=== PATIENT | female | born 1940 | race Caucasian/White ===

== ENCOUNTER 2018-02-26 13:14 | Observation (INO) ==
--- NOTE | 2018-02-26 14:56 | ED ---
HPI General Chief complaint: Medical Clearance Stated complaint: Psych eval / OBPD Time Seen by Provider: 02/26/18 13:47 History of Present Illness HPI narrative: Patient is a 77-year-old female with a history of rheumatoid arthritis and lupus presents the emergency department under Feliciano act for evaluation. Patient states that her son was arrested today for parole violation was taken to correction. She states that inform law enforcement she told her son that she was going to take the rest of her Xanax and kill herself because of this. The patient states that she is living with her son and that her son performs most of her advanced activities of daily living including getting the food helping with cooking and cleaning. Patient is able to ambulate with a walker to the bathroom and back. She denies any physical complaints currently denies any chest pain shortness breath abdominal pain nausea vomiting diarrhea constipation. She states she is feeling like she is going to have a panic attack and becomes very tearful during the exam. Symptoms moderate, started today, associated signs symptoms and context as above. Related Data Allergies Allergy/AdvReac Type Severity Reaction Status Date / Time No Known Allergies Allergy Verified 02/26/18 14:46 Review of Systems ROS: all other systems reviewed are negative PMFSH Social History Social History Substance History: No History of Abuse Second Hand Smoke Exposure: No Smoking Status: Current every day smoker Tobacco Type: Cigarettes How Often Do You Have a Drink Containing Alcohol: Never Recent Travel in [facility] within the Last 8 Weeks: No Recent Out of Country Travel within the Last 8 Weeks: No Immunization History Tetanus Immunization: <5 Years Exam Narrative Exam Narrative: GENERAL: Well-developed well-nourished no obvious distress. Tearful during exam. SKIN: Focused skin assessment warm/dry. HEAD: Atraumatic. Normocephalic. EYES: Pupils equal and round. No scleral icterus. No injection or drainage. ENT: No nasal bleeding or discharge. Mucous membranes pink and moist. NECK: Trachea midline. No JVD. CARDIOVASCULAR: Regular rate and rhythm. No murmur appreciated. RESPIRATORY: No accessory muscle use. Clear to auscultation. Breath sounds equal bilaterally. GASTROINTESTINAL: Abdomen soft, non-tender, nondistended. Hepatic and splenic margins not palpable. MUSCULOSKELETAL: Patient does not appear to have any traumatic deformities, there is ulnar deviation of all the digits in bilateral upper extremities consistent with chronic rheumatoid arthritis.. No clubbing. No cyanosis. No edema. NEUROLOGICAL: Awake and alert. No obvious cranial nerve deficits. Motor grossly within normal limits. Normal speech. PSYCHIATRIC: Appropriate mood and affect; insight and judgment normal. Denies suicidal homicidal ideation. Course Initial Documented Vital Signs Temperature 98.1 F 02/26/18 13:43 Pulse Rate 84 02/26/18 13:43 Respiratory Rate 16 02/26/18 13:43 Blood Pressure 150/74 H 02/26/18 13:43 Pulse Oximetry 96 02/26/18 13:43 Last Documented Vital Signs Temperature 98.1 F 02/26/18 13:43 Pulse Rate 84 02/26/18 13:43 Respiratory Rate 16 02/26/18 13:43 Blood Pressure 150/74 H 02/26/18 13:43 Pulse Oximetry 96 02/26/18 13:43 Medical Decision Making MDM Narrative Medical decision making narrative: Patient room in the emergency department, she is under Feliciano act, does not appear to have any medical problems that warrant emergent workup. In my opinion she is medically clear for psychiatric evaluation. Basic labs been ordered according to psychiatric protocol. I reviewed the patient's labs, minimally elevated white count 14.1. Patient does not have any signs symptoms suggest infection. A chest x-ray UA were negative. She remains medically cleared for psychiatric evaluation. I case management request I will also place referral for home health. Medical Screen Exam Complete: Yes Emergency Medical Condition: Yes Lab Data Result diagrams: 02/26/18 13:45 02/26/18 13:45 Lab Results 02/26/18 02/26/18 02/26/18 Range/Units 13:45 13:45 15:30 WBC 14.1 H (4.0-11.0) th/mm3 RBC 4.37 (4.00-5.30) mil/mm3 Hgb 13.9 (11.6-15.3) gm/dL Hct 40.8 (35.0-46.0) % MCV 93.5 (80.0-100.0) fL MCH 31.7 (27.0-34.0) pg MCHC 33.9 (32.0-36.0) % RDW 16.2 (11.6-17.2) % Plt Count 210 (150-450) th/mm3 MPV 9.5 (7.0-11.0) fL Neut % (Auto) 82.0 H (16.0-70.0) % Lymph % (Auto) 10.7 (9.0-44.0) % [place] % (Auto) 7.1 (0.0-8.0) % Eos % (Auto) 0.0 (0.0-4.0) % Baso % (Auto) 0.2 (0.0-2.0) % Neut # (Auto) 11.5 H (1.8-7.7) th/mm3 Lymph # (Auto) 1.5 (1.0-4.8) th/mm3 Woodson # (Auto) 1.0 H (0.0-0.9) th/mm3 Eos # (Auto) 0.0 (0.0-0.4) th/mm3 Baso # (Auto) 0.0 (0.0-0.2) th/mm3 WBC Differential . Differential Comment Auto diff final Sodium 137 (136-145) meq/L Potassium 3.7 (3.5-5.1) meq/L Chloride 106 (98-107) meq/L Carbon Dioxide 22.3 (21.0-32.0) meq/L Anion Gap 9 (5-15) meq/L BUN 19 H (7-18) mg/dL Creatinine 0.82 (0.50-1.00) mg/dL Estimated GFR 68 L (>89) mL/min Random Glucose 157 H (74-106) mg/dL Calcium 8.7 (8.5-10.1) mg/dL Magnesium 2.1 (1.5-2.5) mg/dL Total Bilirubin 0.4 (0.2-1.0) mg/dL AST 14 L (15-37) U/L ALT 21 (10-53) U/L Alkaline Phosphatase 60 (45-117) U/L Total Protein 7.2 (6.4-8.2) g/dL Albumin 2.8 L (3.4-5.0) g/dL TSH 0.560 (0.358-3.740) uIU/mL Urine Color (Yellw/Straw) Urine Clarity (Clear) Urine pH (5.0-8.5) Ur Specific [place] (1.002-1.035) Urine Protein (Neg-Trace) mg/dL Urine Glucose (UA) (Negative) mg/dL Urine Ketones (Negative) mg/dL Urine Occult Blood (Negative) Urine Nitrate (Negative) Urine Bilirubin (Negative) Urine Urobilinogen (Less than 2) mg/dL Ur Leukocyte Esterase (Negative) Urine RBC (0-3) /hpf Urine WBC (0-5) /hpf Ur Microscopic Review Urine Opiates Screen Neg (Neg) Ur Barbiturates Screen Neg (Neg) Ur Amphetamines Screen Neg (Neg) U Benzodiazepines Scrn Neg (Neg) Urine Cocaine Screen Neg (Neg) U Cannabinoids Screen Neg (Neg) Serum Alcohol Less than 3 (0-5) mg/dL 02/26/18 Range/Units 15:30 WBC (4.0-11.0) th/mm3 RBC (4.00-5.30) mil/mm3 Hgb (11.6-15.3) gm/dL Hct (35.0-46.0) % MCV (80.0-100.0) fL MCH (27.0-34.0) pg MCHC (32.0-36.0) % RDW (11.6-17.2) % Plt Count (150-450) th/mm3 MPV (7.0-11.0) fL Neut % (Auto) (16.0-70.0) % Lymph % (Auto) (9.0-44.0) % [place] % (Auto) (0.0-8.0) % Eos % (Auto) (0.0-4.0) % Baso % (Auto) (0.0-2.0) % Neut # (Auto) (1.8-7.7) th/mm3 Lymph # (Auto) (1.0-4.8) th/mm3 [place] # (Auto) (0.0-0.9) th/mm3 Eos # (Auto) (0.0-0.4) th/mm3 Baso # (Auto) (0.0-0.2) th/mm3 WBC Differential Differential Comment Sodium (136-145) meq/L Potassium (3.5-5.1) meq/L Chloride (98-107) meq/L Carbon Dioxide (21.0-32.0) meq/L Anion Gap (5-15) meq/L BUN (7-18) mg/dL Creatinine (0.50-1.00) mg/dL Estimated GFR (>89) mL/min Random Glucose (74-106) mg/dL Calcium (8.5-10.1) mg/dL Magnesium (1.5-2.5) mg/dL Total Bilirubin (0.2-1.0) mg/dL AST (15-37) U/L ALT (10-53) U/L Alkaline Phosphatase (45-117) U/L Total Protein (6.4-8.2) g/dL Albumin (3.4-5.0) g/dL TSH (0.358-3.740) uIU/mL Urine Color Straw (Yellw/Straw) Urine Clarity Clear (Clear) Urine pH 7.0 (5.0-8.5) Ur Specific [place] 1.004 (1.002-1.035) Urine Protein Negative (Neg-Trace) mg/dL Urine Glucose (UA) Negative (Negative) mg/dL Urine Ketones Negative (Negative) mg/dL Urine Occult Blood Negative (Negative) Urine Nitrate Negative (Negative) Urine Bilirubin Negative (Negative) Urine Urobilinogen Less than 2 (Less than 2) mg/dL Ur Leukocyte Esterase Negative (Negative) Urine RBC Less than 1 (0-3) /hpf Urine WBC 2 (0-5) /hpf Ur Microscopic Review Not Reportable Urine Opiates Screen (Neg) Ur Barbiturates Screen (Neg) Ur Amphetamines Screen (Neg) U Benzodiazepines Scrn (Neg) Urine Cocaine Screen (Neg) U Cannabinoids Screen (Neg) Serum Alcohol (0-5) mg/dL Imaging Data Radiologist's impression: Chest X-Ray 02/26/18 16:35 CONCLUSION: No acute cardiopulmonary disease demonstrated. Discharge Plan Discharge Disposition Patient Disposition: 30 Still Patient Physicians Team ED Provider: Herbert Guidry Primary Care Provider: Primary Care Hannah Landa Status ED Status: Medically Cleared
[2018-02-26 15:47] LABS: Baso % (Auto) 0.2 % (0.0-2.0); Hematocrit 40.8 % (35.0-46.0); Hemoglobin 13.9 gm/dL (11.6-15.3); Lymph # (Auto) 1.5 th/mm3 (1.0-4.8); Lymph % (Auto) 10.7 % (9.0-44.0); Mean Corpuscular HGB Conc 33.9 % (32.0-36.0); Mean Corpuscular Hemoglobin 31.7 pg (27.0-34.0); Mean Corpuscular Volume 93.5 fL (80.0-100.0); Mean Platelet Volume 9.5 fL (7.0-11.0); Mono % (Auto) 7.1 % (0.0-8.0); Neut # (Auto) 11.5 th/mm3 (1.8-7.7); Platelet Count 210 th/mm3 (150-450); Red Blood Count 4.37 mil/mm3 (4.00-5.30); Red Cell Distribution Width 16.2 % (11.6-17.2); White Blood Count 14.1 th/mm3 (4.0-11.0)
[2018-02-26 15:59] LABS: Amphetamine Screen,Urine Neg (Neg); Barbiturate Screen,Urine Neg (Neg); Cannabinoid Screen,Urine Neg (Neg); Cocaine Screen,Urine Neg (Neg)
[2018-02-26 16:00] LABS: Opiate Screen,Urine Neg (Neg)
[2018-02-26 16:15] LABS: Alanine Aminotransferase 21 U/L (10-53); Albumin 2.8 g/dL (3.4-5.0); Anion Gap 9 meq/L (5-15); Aspartate Aminotransferase 14 U/L (15-37); Blood Urea Nitrogen 19 mg/dL (7-18); Calcium 8.7 mg/dL (8.5-10.1); Carbon Dioxide 22.3 meq/L (21.0-32.0); Chloride 106 meq/L (98-107); Glomerular Filtration Rate 68 mL/min (>89); Glucose,Random 157 mg/dL (74-106); Magnesium 2.1 mg/dL (1.5-2.5); Potassium 3.7 meq/L (3.5-5.1); Sodium 137 meq/L (136-145)
[2018-02-26 16:19] LABS: Alkaline Phosphatase 60 U/L (45-117); Total Protein 7.2 g/dL (6.4-8.2)
[2018-02-26 17:18] LABS: Bilirubin,Urine Negative (Negative); Clarity,Urine Clear (Clear); Color,Urine Straw (Yellw/Straw); Glucose,Urine (UA) Negative (Negative); Leukocyte Esterase,Urine Negative (Negative); Nitrite,Urine Negative (Negative); Specific Gravity,Urine 1.004 (1.002-1.035)
--- NOTE | 2018-02-26 17:44 | XR ---
EXAM DATE: 02/26/2018 5:41 PM EST AGE/SEX: 77 years / Female INDICATIONS: Cough CLINICAL DATA: This is the patient's initial encounter. Patient reports that signs and symptoms have been present for 1 day and indicates a pain score of 0/10. MEDICAL/SURGICAL HISTORY: None. None. COMPARISON: [facility], XR CHEST PA AND LAT, 04/16/2014. . FINDINGS: No infiltrate, effusion or pneumothorax. Heart size stable, within normal limits. Tortuous thoracic aorta again noted. Mild to moderate S shaped thoracolumbar curvature again seen. CONCLUSION: No acute cardiopulmonary disease demonstrated. Electronically signed by: Andi Murphy MD 02/26/2018 5:42 PM EST
--- NOTE | 2018-02-26 18:11 | P.DCO ---
Home Health Care Face to Face Diagnosis (1) Rheumatoid arthritis: Physical Therapy Order: Evaluate and treat Home Health Nursing Order: Medical education and Signs/symptoms of disease process Home Health Aide Order: To assist in: brush trimming machine setter and meal prep Final Armature Tester Order: To evaluate: Living conditions/environment Case Management Consult Case Management Consult-Home Health: Yes I have seen patient Aylin Hunter on 02/26/18. My clinical findings support the need for the requested home health care services because: Limited mobility due to disease progression and Limited ability to care for self I certify that my clinical findings support that this patient is homebound because: Unsteady gait/balance (Uses walker)
--- NOTE | 2018-02-27 12:17 | P.CONPSY ---
<Sonya Renee - Last Filed: 02/27/18 14:18> Provisional Diagnosis Admission Date: February 26, 2018 13:14 [place] I.: adjustment disorder History of Present Illness Primary Care Provider: No Primary Care Physician History of Present Illness: This is a 77 year-old , female who presents under a Feliciano Act to this facility for reportedly making suicidal statements. The patient is not previously known to this department. Reviewed electronic medical records, labs, and discussed case with staff. Patient was evaluated in her room in [facility]. She was found sitting in a chair in [facility]. Her speech is clear, logical, organized, of normal varun and volume. She denies being suicidal, homicidal, or experiencing auditory or visual hallucinations. The patient reports that she became upset after her son was arrested for probation violation. He lives with her and helps her. She claims that she does many of her own ADLs but cannot drive. She claims that she uttered the perceived threat of self-harm in the heat of the moment and denies that she would ever harm herself. There is no indication of psychosis nor domitila. I can elicit no delusional material. Patient advises that she lives with her son who was recently arrested and removed from the home. She denies any previous attempts at SI or admissions. She denies having been treated for mental health issues in the past. She denies a familial history. She denies owning any firearms. Review of Systems All other systems reviewed negative except as stated in HPI PMFSH - History History Provided By: Patient, Law Enforcement - Medical History Medical History: Medical History (Last Reviewed 02/27/18 @ 12:45 by MARK Resendez) Anxiety Chronic rheumatic arthritis Depression H/O: hysterectomy Lupus Osteoporosis - Tobacco History Second Hand Smoke Exposure: No Tobacco Use In Past 30 Days: No Smoking Status: Current every day smoker Tobacco Type: Cigarettes - Alcohol History How Often Do You Have a Drink Containing Alcohol: Never - Substance Use History Substance History: No History of Abuse - Travel History Recent Travel in the [place] Within the Last 8 Weeks: No Recent Travel Out of the Country Within the Last 8 Weeks: No - Immunization History Tetanus Immunization: <5 Years Medications and Allergies Allergies Allergy/AdvReac Type Severity Reaction Status Date / Time No Known Allergies Allergy Verified 02/27/18 09:52 Home Medications Medication Instructions Recorded Confirmed Type alprazolam 0.25 mg PO DAILY 02/27/18 02/27/18 History bupropion HCl 150 mg PO QAM 02/27/18 02/27/18 History ivermectin 02/27/18 History prednisone 0 PO PER PKG DIR 02/27/18 02/27/18 History Exam Vital signs: Vital Signs 02/26/18 13:43 02/26/18 18:52 02/26/18 22:26 Temperature 98.1 F 97.9 F Pulse Rate 84 67 55 L Respiratory Rate 16 16 20 Blood Pressure 150/74 H 176/76 H 138/67 Pulse Oximetry 96 97 98 Intake & Output 02/26/18 02/27/18 02/27/18 18:59 06:59 18:59 Weight 111 lb Mental Status Examination Appearance: Appropriate Consciousness: Alert Orientation: x4 Motor Activity: Normal gait Speech: Unremarkable Language: Adequate Fund of Knowledge: Adequate Attention and Concentration: Adequate Memory: Unremarkable Mood: Appropriate, Good Affect: Appropriate, Euthymic Thought Process & Associations: Intact, Logical Thought Content: Appropriate Hallucination Type: None Delusion Type: None Suicidal Ideation: No Suicidal Plan: No Suicidal Intention: No Homicidal Ideation: No Homicidal Plan: No Homicidal Intention: No Insight: Adequate Judgment: Adequate Assessment and Plan - Assessment (1) Rheumatoid arthritis Code(s): M06.9 - Rheumatoid arthritis, unspecified Status: Acute - Plan Plan: I will have Dr Romero assess this patient for a possible lift and discharge. The medical doctor has provided a form for a necessary home health visit and she reports that there are neighbors who can help her out with transportation. She denies any SI, HI, or AVH. At this time, I do not feel that she meets BA nor admission criteria. This patient was assessed by Dr Romero and after consultation he has opted to lift her Feliciano act. Justification for Continued Inpatient Stay: Patient to be discharged. <Cj Romero - Last Filed: 02/28/18 12:05> Provisional Diagnosis Admission Date: February 27, 2018 18:21 History of Present Illness Service: ER Primary Care Provider: No Primary Care Physician History of Present Illness: The patient is a 77-year-old woman, no previous psychiatric history, with a med history of rheumatoid arthritis and lupus presents the emergency department under [employer] act for evaluation. Patient states that her son was arrested today for parole violation was taken to prison. She states that inform law enforcement she told her son that she was going to take the rest of her Xanax and kill herself because of this. The patient states that she is living with her son and that her son performs most of her advanced activities of daily living including getting the food helping with cooking and cleaning. Patient is able to ambulate with a walker to the bathroom and back. On the psychiatric evaluation today the patient presents quite cooperative, pleasant, she says that she was just upset with the police because they took her son. She denies suicidal or homicidal ideation, she denies visual and auditory hallucinations at the moment. She is fully oriented x3. [facility] - Medical History Medical History: Medical History (Last Reviewed 02/27/18 @ 12:45 by MARK Resendez) Anxiety Chronic rheumatic arthritis Depression H/O: hysterectomy Lupus Osteoporosis Medications and Allergies Active Medications: Active Medications Al Hydroxide/Mg Hydroxide (Milk Of Magnesia Liq) 30 ml PO Q12H PRN PRN Reason: Mild Constipation Alprazolam (Xanax) 0.25 mg PO DAILY PRN PRN Reason: ANXIETY Last Admin: 02/28/18 09:42 Dose: 0.25 mg Bisacodyl (Dulcolax Supp) 10 mg RECTAL DAILY PRN PRN Reason: SEVERE CONSITIPATION Bupropion HCl (Wellbutrin Sr) 150 mg PO DAILY [facility] Last Admin: 02/27/18 23:37 Dose: Not Given Lactulose (Lactulose Liq) 30 ml PO DAILY PRN PRN Reason: SEVERE CONSITIPATION Senna/Docusate Sodium (Sunitha-Colace) 1 tab PO BID [facility] Last Admin: 02/28/18 09:38 Dose: Not Given Sennosides (Senokot) 17.2 mg PO Q12H PRN PRN Reason: Moderate Constipation Exam Vital signs: Vital Signs 02/27/18 18:56 02/28/18 07:51 Temperature 98.1 F 98.6 F Pulse Rate 86 85 Respiratory Rate 16 20 Blood Pressure 139/80 95/54 L Pulse Oximetry 98 94 L Intake & Output 02/27/18 02/28/18 02/28/18 18:59 06:59 18:59 Intake Total 0 / 0 Balance 0 / 0 Weight 50.349 kg Intake: Oral 0 / 0 Other: # Voids 2 Date of Last Bowel Movement 02/28/18 Weight On Admission 50.349 kg Assessment and Plan - Assessment (1) Adjustment disorder Code(s): F43.20 - Adjustment disorder, unspecified Status: Acute - Plan Plan: Patient seen and widely discussed with nurse practitioner Derek Renee. On my psychiatric evaluation today the patient does not present any neuropsychiatric symptoms are required an immediate psychiatric intervention. The patient is calm, cooperative, logical, coherent and relevant. There is no subjective or objective evidence of depression, anxiety, domitila or psychosis. She denies suicidal and homicidal ideation, she denies visual and auditory hallucinations. She does not meet criteria for involuntary psychiatric admission at this moment. Feliciano act will be lifted.
[2018-02-27] MEDS ORDERED: ALPRAZolam 0.5 MG Tablet PO ONE (17:39)
--- NOTE | 2018-02-27 17:45 | P.HPIM ---
History of Present Illness Primary Care Physician: No Primary Care Physician History of Present Illness: 77 year-old , female who had presented to ER under a Feliciano Act to this facility for reportedly making suicidal statements.Patient was seen by psych and cleared for discharge. She was sent home but apparently could not get into her house because she does not have her keys and will need a lock henao to get in which cannot happen until tomorrow(02/28). ER requested bedded outpatient state until patient can be discharged. Diagnosis (1) Rheumatoid arthritis: Review of Systems Review of Systems: all other systems reviewed are negative [facility] Medical History Medical History Anxiety (Acute) Chronic rheumatic arthritis (Acute) Depression (Acute) H/O: hysterectomy (Acute) Lupus (Acute) Osteoporosis (Acute) Social History Social History Substance History: No History of Abuse Second Hand Smoke Exposure: No Smoking Status: Current every day smoker Tobacco Type: Cigarettes How Often Do You Have a Drink Containing Alcohol: Never Recent Travel in [facility] within the Last 8 Weeks: No Recent Out of Country Travel within the Last 8 Weeks: No Immunization History Tetanus Immunization: <5 Years Medications and Allergies Allergies Allergy/AdvReac Type Severity Reaction Status Date / Time No Known Allergies Allergy Verified 02/27/18 09:52 Home Medications Medication Instructions Recorded Confirmed Type alprazolam 0.25 mg PO DAILY 02/27/18 02/27/18 History bupropion HCl 150 mg PO QAM 02/27/18 02/27/18 History ivermectin 02/27/18 History prednisone 0 PO PER PKG DIR 02/27/18 02/27/18 History Physical Exam Vital signs: Last Vital Signs Temp 97.9 F 02/26/18 18:52 Pulse 55 L 02/26/18 22:26 Resp 20 02/26/18 22:26 BP 138/67 02/26/18 22:26 Pulse Ox 98 02/26/18 22:26 Intake & Output 02/25/18 02/26/18 02/27/18 02/28/18 06:59 06:59 06:59 06:59 Weight 50.349 kg Narrative: GENERAL: This is a well-nourished, well-developed patient, in no apparent distress. HEENT: not pale,anicteric CARDIOVASCULAR: Regular rate and rhythm without murmurs, gallops, or rubs. RESPIRATORY: Clear to auscultation. Breath sounds equal bilaterally. No wheezes , rales, or rhonchi. GASTROINTESTINAL: Abdomen soft, non-tender, nondistended. Normal active bowel sounds MUSCULOSKELETAL: Extremities without clubbing, cyanosis, or edema. 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 Moves all ext x4 Results Labs CBC & Chem 7: 02/26/18 13:45 02/26/18 13:45 Imaging Impressions Chest X-Ray 02/26/18 16:35 CONCLUSION: No acute cardiopulmonary disease demonstrated. Caprini VTE Risk Assessment Caprini VTE Risk Assessment: No/Low Risk (score <= 1) Caprini Risk Assessment Model: Point Value = 1 Point Value = 2 Point Value = 3 Point Value = 5 Age 41-60 Minor surgery BMI > 25 kg/m2 Swollen legs Varicose veins or History of unexplained or recurrent spontaneous Oral contraceptives or hormone replacement Sepsis (< 1 month) Serious lung disease, including pneumonia (< 1 month) Abnormal pulmonary function Acute myocardial infarction Congestive heart failure (< 1 month) History of inflammatory bowel disease Medical patient at bed rest Age 61-74 Arthroscopic surgery Major open surgery (> 45 min) Laparoscopic surgery (> 45 min) Malignancy Confined to bed (> 72 hours) Immobilizing plaster cast Central venous access Age >= 75 History of VTE Family history of VTE Factor V Leiden Prothrombin [id number] Lupus anticoagulant Anticardiolipin antibodies Elevated serum homocysteine Heparin-induced thrombocytopenia Other congenital or acquired thrombophilia Stroke (< 1 month) Elective arthroplasty Hip, pelvis, or leg fracture Acute spinal cord injury (< 1 month) Prophylaxis Regimen: Total Risk Factor Score Risk Level Prophylaxis Regimen 0-1 Low Early ambulation 2 Moderate Order ONE of the following: *Sequential Compression Device (SCD) *Heparin 5000 units SQ BID 3-4 Higher Order ONE of the following medications: *Heparin 5000 units SQ TID *Enoxaparin/Lovenox 40 mg SQ daily (WT < 150 kg, CrCl > 30 mL/min) *Enoxaparin/Lovenox 30 mg SQ daily (WT < 150 kg, CrCl > 10-29 mL/min) *Enoxaparin/Lovenox 30 mg SQ BID (WT < 150 kg, CrCl > 30 mL/min) AND/OR *Sequential Compression Device (SCD) 5 or more Highest Order ONE of the following medications: *Heparin 5000 units SQ TID (Preferred with Epidurals) *Enoxaparin/Lovenox 40 mg SQ daily (WT < 150 kg, CrCl > 30 mL/min) *Enoxaparin/Lovenox 30 mg SQ daily (WT < 150 kg, CrCl > 10-29 mL/min) *Enoxaparin/Lovenox 30 mg SQ BID (WT < 150 kg, CrCl > 30 mL/min) AND *Sequential Compression Device (SCD) Assessment and Plan (1) Rheumatoid arthritis: Code(s): M06.9 - Rheumatoid arthritis, unspecified Status: Acute Plan 77 yo f with h/o rheumatoid arthritis, had been brought in as a feliciano's act and was cleared by psych, but now cannot get into her house. she has no acute medical issues. she is being sent to medicine as a bedded outpatient. continue her usual home medication. _ (1) Rheumatoid arthritis Qualifiers: Laterality: Rheumatoid arthritis location: Rheumatoid factor presence:
[2018-02-27] MEDS ORDERED: Bisacodyl 10 MG Supp RECTAL PRN (18:34)
[2018-02-27] MEDS ORDERED: ALPRAZolam 0.25 MG Tablet PO PRN (20:05)
[2018-02-27] MEDS: Senna/Docusate Sodium 8.6/50 MG Tablet PO SCH (23:36)
[2018-02-27] MEDS: buPROPion 150 MG 12 HR Tablet PO SCH (23:37)
[2018-02-28 07:54] VITALS: BP 95/54; PULSE 85; RESP 20; TEMP 98.6; O2SAT 94
--- NOTE | 2018-02-28 08:44 | P.DS ---
Date of admission: 02/27/18 18:21 Primary care physician: No Primary Care Physician Brief History from admission: 77 year-old , female who had presented to ER under a [employer] Act to this facility for reportedly making suicidal statements.Patient was seen by psych and cleared for discharge. She was sent home but apparently could not get into her house because she does not have her keys and will need a lock henao to get in which cannot happen until tomorrow(02/28). ER requested bedded outpatient state until patient can be discharged. DS: Summary Hospital Course: After arrest for parole violation patient expressed suicidal intentions. She was brought to the emergency department under [employer] act. Psychiatry evaluated this patient and cleared her for discharge. Patient did not have options for discharge to home because she did not have a sepulveda. She was transferred to our service under bedded outpatient status. Patient is medically stable and cleared for discharge to home and will discharge home today. - Time Spent with Patient Total time spent providing and/or coordinating discharge services: Less than 30 minutes - Quality: VTE Deep Vein Thrombosis/Pulmonary Embolism Present on Admission: No Exam Vital signs: Vital Signs 02/27/18 18:56 02/28/18 07:51 Temperature 98.1 F 98.6 F Pulse Rate 86 85 Respiratory Rate 16 20 Blood Pressure 139/80 95/54 L Pulse Oximetry 98 94 L Intake & Output 02/27/18 02/28/18 02/28/18 18:59 06:59 18:59 Intake Total 0 / 0 Balance 0 / 0 Weight 50.349 kg Intake: Oral 0 / 0 Other: # Voids 2 Weight On Admission 50.349 kg Results Procedures completed during hospitalization: None - Impressions ITS Impressions Chest X-Ray 02/26/18 16:35 CONCLUSION: No acute cardiopulmonary disease demonstrated. Discharge Plan - Discharge Disposition Patient Disposition: 01 Discharge Home - Discharge Condition Condition: Stable - Discharge Order Discharge Orders: Discharge Order (Routine); Ordered 02/27/18 Ordered By: Lacey Lanza Clear for Discharge (Routine); Ordered 02/28/18 Ordered By: Zain Ibarra - Discharge Details Anticipated Discharge Date: 02/28/18 - Physicians Team Primary Care Provider: Primary Care Syeda,No Attending Provider: Zain Ibarra
[2018-02-28] MEDS: buPROPion 150 MG 12 HR Tablet PO SCH (09:37)
[2018-02-28] MEDS: Senna/Docusate Sodium 8.6/50 MG Tablet PO SCH (09:38)
== END 2018-02-28 10:16 | disposition home or self-care (01) ==
LOC: NEDA 13:14 → NEPD 13:14 → NEPFCDU 02-27 20:38
PROVIDERS: ADMIT Hospitalist; ATTEND Hospitalist